=== PATIENT | female | born 1990 | race African-American/Black ===

== ENCOUNTER 2022-06-15 09:29 | Emergency (ER) | payer SELFPAY ==
[~2022-06-15] VITALS: Ht 165.1 cm; Wt 112.0 kg
[2022-06-15] MEDS ORDERED: ACETAMINOPHEN500 MG PO (09:51)
[2022-06-15] MEDS ORDERED: IBUPROFEN200 MG PO (09:51)
[2022-06-15] MEDS ORDERED: CLEOCIN HCL300 MG PO (09:51)
== END 2022-06-15 10:00 | disposition home or self-care (01) ==
LOC: FSED 09:35
DX: K08.89 Other specified disorders of teeth and supporting structures (principal); K02.9 Dental caries, unspecified
CPT/HCPCS: 99282